=== PATIENT | female | born 1995 | race Two or more races ===

== ENCOUNTER → 2020-07-27 | Outpatient (CLI) | payer OTHER ==
--- NOTE | 2020-07-27 13:28 | KCIC ---
Single view chest dated 07/27/2020: No comparison available. Clinical Indication: Follow-up tuberculosis. Findings: Single upright portable exam of the chest was performed. Heart size and mediastinal contours are with in normal limits given technique. The lungs are clear without evidence of focal consolidation. No ple ural effusion or pneumothorax. Impression:: No radiographic evidence of active tuberculosis. Electronically signed by: Jem Tellez MD (07/27/2020 1:25 PM) [id number]
== END ==
LOC: KCIC 12:59
PROVIDERS: ATTEND Family Medicine
DX: Z11.1 Encounter for screening for respiratory tuberculosis (principal)
CPT/HCPCS: 71045